=== PATIENT | male | born 2000 | race Caucasian/White ===

== ENCOUNTER 2022-02-19 12:32 | Emergency (ER) | payer BC ==
[~2022-02-19] VITALS: Ht 193 cm; Wt 100.0 kg
[2022-02-19 12:43] VITALS: BP 162/94
== END 2022-02-19 17:22 | disposition home or self-care (01) ==
LOC: ER 12:33
DX: S32.050A Wedge compression fracture of fifth lumbar vertebra, initial encounter for closed fracture (principal); Z88.0 Allergy status to penicillin; X58.XXXA Exposure to other specified factors, initial encounter; Y93.89 Activity, other specified; Y92.89 Other specified places as the place of occurrence of the external cause; Y99.8 Other external cause status
CPT/HCPCS: 72100; 72131; 99284